=== PATIENT | female | born 1960 | race Caucasian/White ===

== ENCOUNTER 2022-05-04 08:33 | Emergency (ER) | payer MEDICAID ==
[~2022-05-04] VITALS: Ht 167.6 cm; Wt 83.0 kg
[~2022-05-04 08:33] MED LIST: ASPI-1406 PO; ENAL-75 PO; HYDR25TA PO; IBUP-2029 PO; PRAV20TA57 PO
[2022-05-04 08:39] VITALS: BP 138/96
[2022-05-04 13:17] LABS: BASOPHILS % 0.3 % (0.0-2.0); EOSINOPHILS % 1.1 % (0.0-5.0); HEMATOCRIT. 39.4 % (36.0-48.0); HEMOGLOBIN. 13.7 g/dL (12.0-16.0); LYMPHOCYTES % 25.4 % (20.0-50.0); MEAN CORPUSCULAR HEMOGLOBIN 31.4 pg (28.0-32.0); MEAN CORPUSCULAR VOLUME 90.3 fL (81.0-99.0); MEAN PLATELET VOLUME 8.9 fl (7.4-10.4); MONOCYTES % 8.2 % (2.0-8.0); PLATELET 308 x1000/uL (130-400); RED BLOOD CELL COUNT 4.36 mill/uL (4.2-5.4); RED CELL DISTRIBUTION WIDTH 13.5 % (11.6-14.6)
[2022-05-04 13:25] LABS: CHLORIDE 97 mEq/L (98-107)
== END 2022-05-04 16:44 | disposition home or self-care (01) ==
LOC: ER 08:33
DX: R07.81 Pleurodynia (principal); R07.89 Other chest pain
CPT/HCPCS: 36415; 71275; 80053; 85025; 99285

== ENCOUNTER 2023-01-08 17:32 | Emergency (ER) | payer MEDICAID ==
[~2023-01-08] VITALS: Ht 160 cm; Wt 103.0 kg
[2023-01-08 18:08] VITALS: BP 128/77; PULSE 83; RESP 16; TEMP 97.7; O2SAT 100
[2023-01-08] MEDS ORDERED: CYCL10TA21 MT (19:22)
[2023-01-08] MEDS ORDERED: LIDO700A15 TP (19:22)
[2023-01-08] MEDS ORDERED: DICL100G32 TP (19:22)
== END 2023-01-08 19:32 | disposition home or self-care (01) ==
LOC: ER 17:51
DX: S16.1XXA Strain of muscle, fascia and tendon at neck level, initial encounter (principal); E11.9 Type 2 diabetes mellitus without complications; I10 Essential (primary) hypertension; Z88.6 Allergy status to analgesic agent; X58.XXXA Exposure to other specified factors, initial encounter; Y93.89 Activity, other specified; Y92.89 Other specified places as the place of occurrence of the external cause; Y99.8 Other external cause status
CPT/HCPCS: 99283

== ENCOUNTER 2023-02-05 20:32 | Emergency (ER) | payer MEDICAID, OTHER ==
[~2023-02-05] VITALS: Ht 160 cm; Wt 78.0 kg
[~2023-02-05 20:32] MED LIST changes: +CYCL10TA21 MT; +DICL100G32 TP; +LIDO700A15 TP
[2023-02-05 20:51] VITALS: BP 176/86; PULSE 70; RESP 16; TEMP 98.2; O2SAT 99
[2023-02-06] MEDS ORDERED: KETOROLAC 60MG/2ML VIAL IM ONE (04:45)
[2023-02-06] MEDS ORDERED: BACLOFEN 10MG TABLET PO ONE (04:45)
[2023-02-06] MEDS ORDERED: LIDOCAINE 5% PATCH TOP SCH (04:45)
[2023-02-06] MEDS ORDERED: BACL-141 MT (04:46)
[2023-02-06] MEDS ORDERED: NAPR275T96 MT (04:46)
[2023-02-06] MEDS ORDERED: LIDO700A15 TP (04:46)
== END 2023-02-06 05:33 | disposition home or self-care (01) ==
LOC: ER 20:32
DX: G57.01 Lesion of sciatic nerve, right lower limb (principal); M79.604 Pain in right leg; E11.9 Type 2 diabetes mellitus without complications; I10 Essential (primary) hypertension; Z79.899 Other long term (current) drug therapy
CPT/HCPCS: 99285; 93971; 96372; J1885